=== PATIENT | female | born 2000 | race Hispanic/Latino ===

== ENCOUNTER 2019-07-09 09:59 | Outpatient (CLI) | payer BC ==
--- NOTE | 2019-07-09 12:16 | MRI ---
MRI LUMBAR SPINE WITHOUT CONTRAST: INDICATION: Hamstring injury. Back pain. Pain down left lower extremity. FINDINGS: The lumbar vertebrae maintain height and alignment. There is diffuse low T1 signal seen throughout t he visualized vertebrae which indicates a diffuse red marrow replacement of fatty marrow. This is no nspecific, however, recommend clinical correlation regarding patient's blood count and bone marrow as sessment. There is mild loss of disk space height at the L3-4, L4-5, and L5-S1 disk with mild degenerative disk signal change. At L1-2, no significant disk bulge. No central canal or foraminal stenosis. At L2-3, minimal bulge without central canal or foraminal stenosis. At L3-4, there is a small focal protrusion centrally and slightly to the left which indents the anter ior thecal sac. This results in mild central canal stenosis. The foramen are patent. At L4-5, there is evidence of annular fissure with a prominent focal disk protrusion centrally indent ing the anterior thecal sac. This displaces the traversing left L4 nerve root and results in moderat e central canal stenosis. There is mild facet hypertrophy. At L5-S1, there is a broad-based disk protrusion which mildly flattens the anterior thecal sac. Ther e is mild facet arthrosis. Mild central canal stenosis. No significant foraminal stenosis. IMPRESSION: 1. There are disk protrusions at L3-4, L4-5, and L5-S1 as described above. 2. Diffuse low T1 signal throughout the visualized vertebrae indicating yellow marrow replacement wi th red marrow. This is a nonspecific finding. Chronic diseases and anemia should be excluded. Elvin mmend clinical correlation. POS: [facility]
== END 2019-07-09 10:00 | disposition home or self-care (01) ==
LOC: BICMRI 09:59
PROVIDERS: ATTEND Orthopaedic Surgery
DX: S76.302A Unspecified injury of muscle, fascia and tendon of the posterior muscle group at thigh level, left thigh, initial encounter (principal); M51.26 Other intervertebral disc displacement, lumbar region; M51.27 Other intervertebral disc displacement, lumbosacral region
CPT/HCPCS: 72148